=== PATIENT | female | born 1995 | race Caucasian/White ===

== ENCOUNTER 2020-03-22 16:18 | Emergency (ER) | payer OTHER, MEDICAID ==
[~2020-03-22] VITALS: Ht 157.5 cm; Wt 85.0 kg
--- NOTE | 2020-03-22 16:50 | NUR ---
HYPERBARIC TECHNICIAN: PT AMBULATORY WITH STEADY GAIT TO ROOM AT THIS TIME. GREGG
--- NOTE | 2020-03-22 17:26 | NUR ---
TASK RN: ARIEL COLLECTED, LABELED, AND WALKED TO LAB.
[2020-03-22] MEDS ORDERED: SODIUM CHLORIDE FLUSH 10ML SYR IVF ONE (17:30)
[2020-03-22] MEDS ORDERED: ONDANSETRON 2MG/ML, 2ML IVPush ONE (17:30)
[2020-03-22] MEDS ORDERED: SODIUM CHLORIDE 0.9% 1,000ML IVBOLUS ONE (17:30)
[2020-03-22 17:36] LABS: BASOPHILS # (AUTO) 0.05 x10^3/uL (0-0.1); BASOPHILS % (AUTO) 0 % (0-1); EOSINOPHILS # (AUTO) 0.11 x10^3/uL (0-0.4); EOSINOPHILS % (AUTO) 1 % (1-7); LYMPHOCYTES # (AUTO) 2.17 x10^3/uL (1-3.4); LYMPHOCYTES % (AUTO) 21 % (22-44); MD NO; MEAN CORPUSCULAR HEMOGLOBIN 29.7 pg (27.0-34.8); MEAN CORPUSCULAR HGB CONC 33.5 g/dL (32.4-35.8); MEAN CORPUSCULAR VOLUME 88.6 fL (80-100); MEAN PLATELET VOLUME 9.3 fL (7.4-10.4); MONOCYTES # (AUTO) 0.74 x10^3/uL (0.2-0.8); MONOCYTES % (AUTO) 7 % (2-9); NEUTROPHILS # (AUTO) 7.31 x10^3/uL (1.8-6.8); NEUTROPHILS % (AUTO) 71 % (42-75); PLATELET COUNT 244 x10^3/uL (130-400); RED BLOOD COUNT 4.93 x10^6/uL (3.82-5.3); RED CELL DISTRIBUTION WIDTH 13.6 % (9.6-15.2)
[2020-03-22] MEDS ORDERED: ONDANSETRON 2MG/ML, 2ML ONE (17:36)
[2020-03-22 17:44] LABS: MICROSCOPIC INDICATED
[2020-03-22 17:46] LABS: ALANINE AMINOTRANSFERASE 14 U/L (12-78); ALBUMIN 3.6 g/dL (3.4-5.0); ANION GAP 8 mmol/L (5-15); CALCIUM 8.7 mg/dL (8.5-10.1); CHLORIDE 108 mmol/L (98-107)
[2020-03-22 17:48] LABS: ALKALINE PHOSPHATASE 45 U/L (45-117); BILIRUBIN,TOTAL 0.3 mg/dL (0.2-1.0); CREATININE 0.65 mg/dL (0.55-1.02); TOTAL PROTEIN 7.5 g/dL (6.4-8.2)
--- NOTE | 2020-03-22 18:28 | NUR ---
PT A&OX4, RESP EVEN & UNLABORED, SPEECH CLEAR. C/O BURNING W/ URINATION, RT FLANK PAIN. STARTED ANTIBIOTIC AT 1400 YESTERDAY. WAS SEEN AT [facility] YESTERDAY. PT REPORTS BEING 10 WEEKS PG. LMP: 01/04/20. NO PAIN MED TAKEN TODAY. NS INFUSING, 22G LT WRIST; SITE PATENT.
[2020-03-22 18:33] VITALS: BP 114/51
[2020-03-22] MEDS ORDERED: VITAMIN B6 (18:36)
[2020-03-22] MEDS ORDERED: UNASOM (18:36)
[2020-03-22] MEDS ORDERED: ONDA4TAB7 PO (18:36)
== END 2020-03-22 19:29 ==
LOC: ED 18:28
DX: O21.0 Mild hyperemesis gravidarum (principal); E86.9 Volume depletion, unspecified; R10.2 Pelvic and perineal pain; Z3A.10 10 weeks gestation of pregnancy
CPT/HCPCS: 36415; 80053; 81001; 83605; 85025; 87040; 96361; 96374; 99283; J2405; J7030